=== PATIENT | female | born 1945 | race Hispanic/Latino ===

== ENCOUNTER 2018-03-26 11:21 | Inpatient (IN) | payer MEDICARE ==
[2018-03-26 12:35] LABS: BASO % 0.6 % (0.0-2.0); EOS % 0.2 % (0.0-4.0); HEMOGLOBIN 11.9 g/dL (11.0-16.0); LYMPH # 0.5 K/uL (1.0-4.3); LYMPH % 6.4 % (20.0-40.0); MEAN CELL VOLUME 84.3 fL (81.0-99.0); MEAN CORPUSCULAR HEMOGLOBIN 29.3 pg (27.0-31.0); MEAN CORPUSCULAR HGB CONC 34.7 g/dL (33.0-37.0); MEAN PLATELET VOLUME 8.4 fL (7.2-11.7); MONO # 0.6 K/uL (0.0-0.8); MONO % 7.7 % (0.0-10.0); NEUT # 6.4 K/uL (1.8-7.0); NEUT % 85.1 % (50.0-75.0); PLATELET COUNT 293 K/uL (130-400); RBC 4.07 Mil/uL (3.80-5.20); WHITE BLOOD COUNT 7.5 K/uL (4.8-10.8)
[2018-03-26 12:41] LABS: SQUAMOUS EPITHIAL 22 /hpf (0-5); URINE BACTERIA RARE (<OCC); URINE BILIRUBIN NEGATIVE (NEGATIVE); URINE BLOOD 1+ (NEGATIVE); URINE CLARITY Clear (Clear); URINE COLOR Yellow (YELLOW); URINE GLUCOSE (UA) NORMAL (Normal); URINE LEUKOCYTE ESTERASE NEG Leu/uL (Negative); URINE PROTEIN 1+ mg/dL (NEGATIVE); URINE UROBILINOGEN NORMAL mg/dL (0.2-1.0)
[2018-03-26 12:47] LABS: ALB/GLOB RATIO 1.3 (1.0-2.1); ALBUMIN 3.8 g/dL (3.5-5.0); ALT/SGPT 31 U/L (9-52); AST/SGOT 26 U/L (14-36); BLOOD UREA NITROGEN 10 mg/dL (7-17); CALCIUM 8.8 mg/dl (8.6-10.4); GFR NON-AFRICAN AMERICAN > 60
[2018-03-26 12:55] LABS: BANDS 2 % (0-2); EOSINOPHIL 1 % (0-4); LYMPHOCYTE 8 % (20-40); MONOCYTE 9 % (0-10); MYELOCYTE 1 % (0-0); NEUTROPHIL 78 % (50-75); REACTIVE LYMPHOCYTES 1 % (0-0); TOTAL CELLS COUNTED 100
[2018-03-26 12:56] LABS: OVALOCYTES SLIGHT; PLATELET ESTIMATE NORMAL (NORMAL)
[2018-03-26 12:59] LABS: B-TYPE NATRIURETIC PEPTIDE 146 pg/mL (0-900)
--- NOTE | 2018-03-26 13:14 | C.PDOC ---
History Of Present Illness 72 y/o female presents to ED with c/o bilateral hip and leg pain for 2-3 days associated with worsening leg edema and redness. Patient states 2 weeks ago, she slid off of a chair onto the floor and landed onto her abdomen. Patient denies head injury, LOC, chest pain, SOB, fever, or any other complaints. Time Seen by Provider: 03/26/18 11:23 Chief Complaint (Nursing): Back Pain History Per: Patient History/Exam Limitations: no limitations Onset/Duration Of Symptoms: Days Current Symptoms Are (Timing): Still Present Quality Of Discomfort: "Pain" Past Medical History Reviewed: Historical Data, Nursing Documentation, Vital Signs Vital Signs: Last Vital Signs Temp 97.7 F 04/01/18 16:00 Pulse 93 H 04/01/18 16:00 Resp 20 04/01/18 16:00 BP 123/69 04/01/18 16:00 Pulse Ox 95 04/01/18 16:00 - Medical History PMH: No Chronic Diseases Surgical History: No Surg Hx Family History: States: No Known Family Hx - Social History Hx Alcohol Use: No Hx Substance Use: No Review Of Systems Constitutional: Negative for: Fever, Chills Cardiovascular: Negative for: Chest Pain, Palpitations Respiratory: Negative for: Cough, Shortness of Breath Gastrointestinal: Negative for: Nausea, Vomiting, Abdominal Pain, Diarrhea Musculoskeletal: Positive for: Leg Pain, Other (Hip pain). Negative for: Arm Pain, Back Pain Neurological: Negative for: Weakness, Numbness Physical Exam - Physical Exam Appears: Well, Non-toxic, No Acute Distress Skin: Warm, Dry, No Rash, Other (bilateral legs and feet erythema ) Head: Normacephalic Eye(s): bilateral: Normal Inspection Oral Mucosa: Moist Neck: Supple Cardiovascular: Rhythm Regular Respiratory: Normal Breath Sounds, No Rales, No Rhonchi, No Wheezing Gastrointestinal/Abdominal: Normal Exam, Bowel Sounds, Soft, No Tenderness Extremity: Tenderness (mild bilateral hip TTP without deformity or swelling ), Pedal Edema (+2 bilateral lower legs), Capillary Refill (<2 seconds all digits ) , No Deformity, No Swelling Extremity: Bilateral: Normal ROM Pulses: Left Dorsalis Pedis: Normal, Right Dorsalis Pedis: Normal Neurological/Psych: Oriented x3, Normal Motor, Normal Sensation Gait: Unable To Assess (patient unable to ambulate) ED Course And Treatment - Laboratory Results Result Diagrams: 04/01/18 13:48 04/01/18 13:48 O2 Sat by Pulse Oximetry: 95 (RA) Pulse Ox Interpretation: Normal - CT Scan/US CT ABD/PELVIS Other Rad Studies (CT/US): Read By Radiologist, Radiology Report Reviewed CT/US Interpretation: Accession No. : [id number]. Patient Name / ID : AGUILAR SEARS / [id number]. Exam Date : 03/26/2018 14:02:27 ( Approved ). Study Comment : Sex / Age : F / [id number]. Creator : Anayeli Kwan. Dictator : Noemi Jvaed MD. Retail Sales Representative : Facilities Flight Check Pilot : Noemi Javed MD. Approver2 : Report Date : 03/26/2018 14:24:30. My Comment : . PROCEDURE: CT Abdomen and Pelvis without Oral or IV contrast. HISTORY: PELVIC AND HIP PAIN AFTER FALL. COMPARISON: None. TECHNIQUE: Contiguous axial images of the abdomen and pelvis. No oral or IV contrast administered. Coronal and Sagittal reformats generated and reviewed. Radiation dose: Total exam DLP = 1073.60 mGy-cm. This CT exam was performed using one or more of the following dose reduction techniques: Automated exposure control, adjustment of the mA and/ or kV according to patient size, and/or use of iterative reconstruction technique. FINDINGS: There is limited evaluation of the solid organs without the administration of IV contrast. LOWER THORAX: No visible consolidation, pleural effusion, or pneumothorax. Moderate hiatal hernia/distal esophageal wall thickening. LIVER: Unremarkable unenhanced appearance. . GALLBLADDER AND BILE DUCTS: Unremarkable unenhanced appearance. PANCREAS: Pancreatic atrophy. SPLEEN: Unremarkable unenhanced appearance. ADRENALS: Left adrenal gland mass measuring approximately 5.1 x 2.3 cm, -4 HU consistent with adenoma. The right adrenal gland appears unremarkable. KIDNEYS AND URETERS: No hydronephrosis or obstructing renal calculus. BLADDER: Distended urinary bladder appears otherwise grossly unremarkable. REPRODUCTIVE: Uterus is present. APPENDIX: No secondary signs of acute appendicitis. BOWEL: The stomach is nondistended. Lack of oral contrast limits evaluation for bowel pathology. The bowel loops appear within normal limits of caliber without evidence of intestinal obstruction. PERITONEUM: No significant free fluid. No definite free air. LYMPH NODES: No bulky lymphadenopathy identified. VASCULATURE: Atherosclerotic calcifications. No aortic aneurysm. BONES: Scoliosis. Osseous demineralization. Degenerative changes. No acute displaced fracture identified. If high clinical index of suspicion for non displaced fractures, suggest MRI due to limitations of CT secondary to osseous demineralization. OTHER FINDINGS: Small fat containing ventral hernia. IMPRESSION: Left adrenal gland mass measuring approximately 5.1 x 2.3 cm appears consistent with an adenoma. Pancreatic atrophy. Moderate hiatal hernia / distal esophageal wall thickening. Distended urinary bladder. Additional findings as above. Progress Note: Blood work, UA, Hip/pelvis xray ordered and reviewed. Patient given PO tylenol. Reevaluation Time: 13:25 Reassessment Condition: Unchanged (Patient c/o persistent hip/pelvic pain - will get CT scan abd/pelvis to futher evaluate.) - Physician Consult Information Physician Contacted: Nel Mcguire Outcome Of Conversation: Discussed patient wit Dr. Mcguire, he agrees with admission for gait dysfunction/inability to ambulate, hypokalemia, generalized weakness. Disposition - Disposition Disposition: HOSPITALIZED Disposition Time: 14:59 Condition: STABLE - Clinical Impression Clinical Impression: Gait disturbance, Hypokalemia, Generalized weakness - Scribe Statement The provider has reviewed the documentation as recorded by the Torrie Roberts All medical record entries made by the Torrie were at my direction and personally dictated by me. I have reviewed the chart and agree that the record accurately reflects my personal performance of the history, physical exam, medical decision making, and the department course for this patient. I have also personally directed, reviewed, and agree with the discharge instructions and disposition. Decision To Admit - Pt Status Changed To: Hospital Disposition Of: Inpatient - Admit Certification Admit to Inpatient:: After my assessment, the patient will require hospitalization for at least two midnights. This is because of the severity of symptoms shown, intensity of services needed, and/or the medical risk in this patient being treated as an outpatient. - InPatient: Physician Admission Certification:: see notes - . Bed Request Type: Regular Admitting Physician: Nel Mcguire Patient Diagnosis: Gait disturbance, Hypokalemia, Generalized weakness
[2018-03-26] MEDS ORDERED: Potassium Chloride 20 mEq ER Tab PO STA ×2 (13:18→18:54)
[2018-03-26] MEDS ORDERED: Potassium Chloride 20 mEq ER Tab PO ONE (13:36)
--- NOTE | 2018-03-26 14:43 | CT ---
PROCEDURE: CT Abdomen and Pelvis without Oral or IV contrast. HISTORY: PELVIC AND HIP PAIN AFTER FALL COMPARISON: None TECHNIQUE: Contiguous axial images of the abdomen and pelvis. No oral or IV contrast administered. Coronal and Sagittal reformats generated and reviewed. Radiation dose: Total exam DLP = 1073.60 mGy-cm. This CT exam was performed using one or more of the following dose reduction techniques: Automated exposure control, adjustment of the mA and/or kV according to patient size, and/or use of iterative reconstruction technique. FINDINGS: There is limited evaluation of the solid organs without the administration of IV contrast. LOWER THORAX: No visible consolidation, pleural effusion, or pneumothorax. Moderate hiatal hernia/distal esophageal wall thickening. LIVER: Unremarkable unenhanced appearance. . GALLBLADDER AND BILE DUCTS: Unremarkable unenhanced appearance. PANCREAS: Pancreatic atrophy. SPLEEN: Unremarkable unenhanced appearance. ADRENALS: Left adrenal gland mass measuring approximately 5.1 x 2.3 cm, -4 HU consistent with adenoma. The right adrenal gland appears unremarkable. KIDNEYS AND URETERS: No hydronephrosis or obstructing renal calculus. BLADDER: Distended urinary bladder appears otherwise grossly unremarkable. REPRODUCTIVE: Uterus is present. APPENDIX: No secondary signs of acute appendicitis. BOWEL: The stomach is nondistended. Lack of oral contrast limits evaluation for bowel pathology. The bowel loops appear within normal limits of caliber without evidence of intestinal obstruction. PERITONEUM: No significant free fluid. No definite free air. LYMPH NODES: No bulky lymphadenopathy identified. VASCULATURE: Atherosclerotic calcifications. No aortic aneurysm. BONES: Scoliosis. Osseous demineralization. Degenerative changes. No acute displaced fracture identified. If high clinical index of suspicion for non displaced fractures, suggest MRI due to limitations of CT secondary to osseous demineralization. OTHER FINDINGS: Small fat containing ventral hernia. IMPRESSION: Left adrenal gland mass measuring approximately 5.1 x 2.3 cm appears consistent with an adenoma. Pancreatic atrophy. Moderate hiatal hernia/ distal esophageal wall thickening. Distended urinary bladder. Additional findings as above.
--- NOTE | 2018-03-26 15:16 | RAD ---
Date of service: 03/26/2018 PROCEDURE: HISTORY: b/l hip simpson after fall COMPARISON: A CT abdomen and pelvis without contrast -the study performed after this exam is noted TECHNIQUE: Frontal and attempted bilateral frog-leg views were obtained. FINDINGS: The exam is limited regarding background osteopenia, large body habitus and the little if any change in projection from the frontal pelvic view to the intended bilateral frog-leg views of each proximal femur. Each proximal femur appears to be anteverted for impeding optimal evaluation for fractures. Nevertheless review of the subsequent same-day CT study does not display or suggest any discrete fracture or distal involving either hip. IMPRESSION: Limited exam for reasons stated above. Generalized osteopenia. No suspect hip fracture - when considering the now available subsequent CT study as well.
--- NOTE | 2018-03-26 22:55 | CP.PCM.CON ---
History of Present Illness - History of Present Illness History of Present Illness: General surgery consult note for Dr. Rusty Ham, PGY-2 Pt S & E at bedside [id number] 72F w/no reports PMH consulted for incidentally found left adrenal mass. 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 Reports bilateral flank pain that radiates down her legs, L >R, bilateral foot pain, B/L LE swelling (improved over last 2 weeks). Denies palpitations, chest pain, SOB, episodes of diaphoresis, changes in bowel or bladder habits, changes in vision, headache, N & V, F & C. CT ab w/findings of Left adrenal gland mass measuring approximately 5.1 x 2.3 cm appears consistent with an adenoma. Afebrile, no leukocytosis. PMH: Denies PSH: Denies All: NKDA SH: Denies tobacco, ETOH or illicit drug use PMD: Denies FH: Non contributory Review of Systems - Review of Systems Systems not reviewed;Unavailable: Language Barrier - Constitutional Constitutional: absent: Chills, Fever, Weakness - EENT Eyes: absent: Change in Vision Ears: absent: Dizziness Nose/Mouth/Throat: absent: Sore Throat - Cardiovascular Cardiovascular: Leg Edema, Pedal Edema. absent: Chest Pain, Lightheadedness, Palpitations - Respiratory Respiratory: absent: Cough - Gastrointestinal Gastrointestinal: absent: Abdominal Pain, Nausea, Vomiting - Genitourinary Genitourinary: absent: Change in Urinary Stream - Musculoskeletal Musculoskeletal: absent: Back Pain, Numbness, Tingling - Integumentary Integumentary: Rash (in intertriginous areas) - Psychiatric Psychiatric: absent: Change in Appetite - Endocrine Endocrine: absent: Fatigue Past Patient History - Past Medical History & Family History Past Medical History?: Yes - Past Social History Smoking Status: Never Smoked - PULMONARY Hx Bronchitis: Yes (periodically) Other/Comment: sinus (periodically) - MUSCULOSKELETAL/RHEUMATOLOGICAL Hx Falls: Yes - PSYCHIATRIC Hx Substance Use: No - SURGICAL HISTORY Hx Surgeries: No - ANESTHESIA Hx Anesthesia: No Meds Allergies/Adverse Reactions: Allergies Allergy/AdvReac Type Severity Reaction Status Date / Time No Known Allergies Allergy Verified 03/26/18 12:16 - Medications Medications: Current Medications Acetaminophen (Tylenol 325mg Tab) 650 mg PO Q6 PRN PRN Reason: Pain, moderate (4-7) Enoxaparin Sodium (Lovenox) 40 mg SC DAILY KARI Pantoprazole Sodium (Protonix Ec Tab) 40 mg PO DAILY KARI Physical Exam - Constitutional Appears: Non-toxic, No Acute Distress - Head Exam Head Exam: ATRAUMATIC, NORMAL INSPECTION, NORMOCEPHALIC - Eye Exam Eye Exam: EOMI, Normal appearance - ENT Exam ENT Exam: Mucous Membranes Moist, Normal Exam - Neck Exam Neck exam: Positive for: Full Rom, Normal Inspection - Respiratory Exam Respiratory Exam: Clear to Auscultation Bilateral, NORMAL BREATHING PATTERN. absent: Rales, Rhonchi, Wheezes, Respiratory Distress - Cardiovascular Exam Cardiovascular Exam: REGULAR RHYTHM, +S1, +S2 - GI/Abdominal Exam GI & Abdominal Exam: Soft. absent: Distended (obese), Tenderness - Extremities Exam Extremities exam: Positive for: pedal edema (B/L). Negative for: normal inspection - Back Exam Back exam: NORMAL INSPECTION. absent: paraspinal tenderness, rash noted, tenderness - Neurological Exam Neurological exam: Alert, CN II-XII Intact, Oriented x3 - Psychiatric Exam Psychiatric exam: Normal Affect, Normal Mood - Skin Skin Exam: Rash (red, moist rash under breasts, under pannus and in between legs ), Warm Results - Vital Signs Recent Vital Signs: Last Vital Signs Temp 98.4 F 03/26/18 17:12 Pulse 91 H 03/26/18 17:12 Resp 20 03/26/18 17:12 BP 169/78 H 03/26/18 17:12 Pulse Ox 93 L 03/26/18 17:12 - Labs Result Diagrams: 03/26/18 12:26 03/26/18 12:26 Labs: Laboratory Results - last 24 hr 03/26/18 03/26/18 03/26/18 12:26 12:26 12:26 WBC 7.5 RBC 4.07 Hgb 11.9 Hct 34.3 MCV 84.3 MCH 29.3 MCHC 34.7 RDW 13.0 Plt Count 293 MPV 8.4 Neut % (Auto) 85.1 H Lymph % (Auto) 6.4 L [place] % (Auto) 7.7 Eos % (Auto) 0.2 Baso % (Auto) 0.6 Neut # (Auto) 6.4 Lymph # (Auto) 0.5 L [place] # (Auto) 0.6 Eos # (Auto) 0.0 Baso # (Auto) 0.0 Neutrophils % (Manual) 78 H Band Neutrophils % 2 Lymphocytes % (Manual) 8 L Reactive Lymphs % 1 H Monocytes % (Manual) 9 Eosinophils % (Manual) 1 Myelocytes % 1 H Platelet Estimate Normal Ovalocytes Slight Sodium 136 Potassium 3.1 L Chloride 98 Carbon Dioxide 30 Anion Gap 11 BUN 10 Creatinine 0.5 L Est GFR ( Amer) > 60 Est GFR (Non-Af Amer) > 60 Random Glucose 117 H Calcium 8.8 Total Bilirubin 0.6 AST 26 ALT 31 Alkaline Phosphatase 86 Total Creatine Kinase 141 H CK-MB (Mass) 1.40 Troponin I < 0.0120 NT-Pro-B Natriuret Pep 146 Total Protein 6.7 Albumin 3.8 Globulin 2.9 Albumin/Globulin Ratio 1.3 Urine Color Yellow Urine Clarity Clear Urine pH 6.0 Ur Specific [place] 1.012 Urine Protein 1+ H Urine Glucose (UA) Normal Urine Ketones 1+ H Urine Blood 1+ H Urine Nitrate Negative Urine Bilirubin Negative Urine Urobilinogen Normal Ur Leukocyte Esterase Neg Urine WBC (Auto) 4 Urine RBC (Auto) 9 H Ur Squamous Epith Cells 22 H Urine Bacteria Rare Assessment & Plan - Assessment and Plan (Free Text) Assessment: 72F w/incidental adrenal mass Plan: Recommendations: metanephrine urinary analysis 24H urinary cortisol level Am plasma aldosterone concentration to plasma renin activity level Further recommendations pending lab findings DW Dr. Michael Ham, PGY-2 - Date & Time Date: 03/26/18 Time: 22:58
[2018-03-26 23:56] LABS: FREE T4 1.44 ng/dL (0.78-2.19)
[2018-03-27 00:45] LABS: FOLATE > 20.0 ng/mL
--- NOTE | 2018-03-27 06:32 | CON ---
DATE: 03/26/2018 ENDOCRINOLOGY CONSULTATION LOCATION: Room 365. HISTORY OF PRESENT ILLNESS: This is a 72-year-old female with no apparent medical history, presenting here with bilateral flank pain and associated radiculopathy and also lower extremity edema and supervening restricted ambulation with disequilibrium, worse over the last two weeks or so prior to admission following a recent fall. She is being referred now for endocrine evaluation because of an incidental CAT scan finding of a left adrenal gland tumor, measuring 5.1 x 2.3 cm consisting of adenoma as noted. PAST MEDICAL HISTORY: Essentially unremarkable. No intake of any medications at this time. FAMILY HISTORY: Positive for hypertension and heart disease. SOCIAL HISTORY: The patient has supportive family. No known substance use. REVIEW OF SYSTEMS: As mentioned above, admits to generalized body weakness with episodic bouts of dizziness and lightheadedness, worse in the last two to three days prior to admission with a recent fall as noted. She denies any prior syncopal or near syncopal episodes. No recent visual changes or headaches as noted. No chest pain, palpitations, or PNDs. Her oral intake has been variable with occasional dyspepsia and admits habitual constipation. Also admits to bilateral flank pain with pain radiating to both lower extremities and also supervening lower extremity edema, worse in the last few weeks prior to admission. PHYSICAL EXAMINATION: GENERAL: This is an obese female, in no apparent distress. VITAL SIGNS: With a blood pressure of 150/90, pulse of 70 beats per minute and regular, temperature 98, respirations 20. Height is 5 feet. Weight is 220 pounds. HEENT: Head: Normocephalic. Eyes: Anicteric with pink conjunctivae. Funduscopy not possible at this time. Ears, nose and throat, otherwise normal. NECK: Supple. Thyroid gland is normal size. No carotid bruits or any cervical adenopathy. CARDIOPULMONARY: Some adynamic precordium. S1 and S2 are rapid and regular. LUNGS: Clear to auscultation. ABDOMEN: Obese, soft with positive bowel sounds. EXTREMITIES: There is +2 bipedal edema. Pulses are +2 bilaterally. LABORATORY DATA: Chemistries showed a BUN of 10, sodium 136, potassium 3.1, chloride 98, CO2 of 30, glucose 117, and creatinine 0.5. Albumin is 3.8. Troponin less than 0.01. ASSESSMENT: This is a 72-year-old female with an incidental finding of adrenal incidentaloma of moderately enlarged dimensions in the left adrenal gland and the possibility always of a functioning versus nonfunctioning adrenal tumor has to be worked up at this point in time. With the large dimensions of the gland measuring 5.1 x 2.3 cm, we have to exclude an underlying adrenal carcinoma. The diagnostic possibilities are always common adrenal adenoma, but because of the large dimensions of the gland, we have to exclude an adrenal carcinoma as mentioned and also whether we are dealing with a functioning adenoma i.e, aldosterone-secreting adenoma especially with underlying hypokalemia, and we have to exclude the so-called Conn's syndrome. Moreover, a remote, but also possibility of a pheochromocytoma has to be excluded at this time, actually especially with underlying uncontrolled hypertension noted only on admission. Moreover because of the underlying obesity, we have to exclude a cortisol-secreting adenoma, which could cause [place] syndrome with underlying morbid obesity. PLAN OF MANAGEMENT: We will obtain a comprehensive hormonal profile and the results of course of this hormone will take close to two weeks reference lab, but anyhow, we will obtain a comprehensive hormonal profile as ordered. Plasma free metanephrine levels with plasma catecholamine levels will be obtained tomorrow morning and we also include a serum cortisol and ACTH level with a plasma renin and plasma aldosterone levels in combination with a plasma renin/aldosterone ratio as added to the hormonal assay as ordered. Serial chemistries will be obtained and will also consider a surgical evaluation for possible laparoscopic adrenalectomy following the completion of the hormonal profile as ordered. We will follow and advice accordingly. Barbara Vasquez MD
[2018-03-27 07:58] LABS: ALB/GLOB RATIO 1.1 (1.0-2.1); ALBUMIN 3.5 g/dL (3.5-5.0); ALT/SGPT 22 U/L (9-52); AST/SGOT 23 U/L (14-36); BLOOD UREA NITROGEN 12 mg/dL (7-17); CALCIUM 8.9 mg/dl (8.6-10.4); GFR NON-AFRICAN AMERICAN > 60
--- NOTE | 2018-03-27 08:44 | CON ---
DATE: 03/27/2018 NEUROLOGICAL INITIAL CONSULTATION ATTENDING PHYSICIAN: Mariah Mcguire MD LOCATION: The patient is seen in room #365, bed B. REASON FOR RENAL CONSULTATION: Ataxia. TIME OF EVALUATION: 7:10 a.m. CHIEF COMPLAINT: The patient was brought into [facility] with a history of unsteady gait. From neurological point of view, I was called into evaluate her for further management. HISTORY OF PRESENT ILLNESS: Sabine Gomez is a 72-year-old right-handed moderately obese female. She admits that she has been falling frequently in the past, prior fall to this admission was a year ago. Year after, 2 weeks ago, she slid just from the kitchen chair, landed on her back. No obvious trauma from the fall. No weakness from the fall. However, she noticed for the last 5 days her gait got disturbed in the sense she has to use the walker which was used by her father. No history of bowel or bladder incontinence. History of lower back pain radiating down to her left leg. No neck pain. No headache. PAST MEDICAL HISTORY: No chronic diseases. PAST SURGICAL HISTORY: No surgical history. FAMILY HISTORY: Unremarkable. PERSONAL HISTORY: Denies smoking or alcohol use. ALLERGIES: NO KNOWN ALLERGIES. REVIEW OF SYSTEMS: Twelve-point system being reviewed. From neuro, losing balance. PHYSICAL EXAMINATION: VITAL SIGNS: Blood pressure 150/70, respiratory rate 16, temperature afebrile, pulse rate 92. NECK: Supple. No carotid bruits. HEART: Heart sounds irregularly irregular. Ejection systolic murmur heard. EXTREMITIES: Right leg externally rotated with 2+ pitting edema on her both legs. NEUROLOGIC: Mental status examination: She is awake, alert, and oriented to person, place and time. No retrograde amnesia. No anterograde amnesia. No sign of depression. No sign of suicidal ideation. Cranial nerve examination: Visual field intact. Pupils reactive. Extraocular normal. No nystagmus. No facial sensory deficit. Significant facial asymmetry manifesting with flattening of the right nasolabial fold. Hearing seems to be intact. Tongue is midline. Good gag. Motor examination: Outstretched hand with eyes closed, no drift noted. Symmetric strength in both upper extremities. Lower extremities as stated, right leg is externally rotated. On lifting her left leg, she feels the pain in her back. However, she could able to lift both lower extremities against the gravity for about 5 seconds. Deep tendon reflexes: Biceps, brachialis, triceps 1+ on the right side. Left side is trace. Right knee 1+, left knee absent, both ankles are absent. Plantars are upgoing on her left side, right side was equivocal response. Sensory examination: No cortical sensory loss. Position sense is intact. Mildly distal sensory motor neuropathy noted. Coordination: [id number] test is intact. Gait is deferred at this time. CONCLUSION: As per neurological examination, Ms. Sabine Gomez has been presenting with left subcortical dysfunction, it could be from internal capsule to lower brainstem. This probably is an ischemic process versus a space-occupying lesion. The patient's Babinski sign on her left side is suggestive of right subcortical dysfunction, which is probably old. 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 WORKUP: X-ray of the pelvis and hip, no obvious fractures. Abdominal CAT scan showed a renal mass. From the x-ray, significant osteopenia. Blood workup: WBC 7.5, hemoglobin 11.9, hematocrit 34.3, platelet 293. ESR 23. Sodium 136, potassium 3.1, chloride 98, bicarbonate 30, GFR more than 60, glucose 117, B12 of 173. TSH 2.62. Urinalysis shows 9 rbc's with epithelial cells and 1+ ketone and 1+ hematuria and proteinuria. RECOMMENDATIONS: 1. MRI of the brain to rule out any ischemic process that could explain her bilateral cerebral dysfunction. 2. If MRI of the brain is negative, the patient should have a lumbosacral MRI to rule out any herniated disc process. 3. The patient should be on a stroke prophylaxis following MRI that should be placed. 4. Physical therapy, fall precaution should be followed. The patient today showed incidental left adrenal mass that has to be followed by seam stayer as well. Leonid Palacios MD
[2018-03-27] MEDS ORDERED: Oxycodone/Acetaminophen 5/325 mg Tab PO PRN (10:42)
--- NOTE | 2018-03-27 10:46 | CP.PCM.PN ---
Subjective - Date & Time of Evaluation Date of Evaluation: 03/27/18 Time of Evaluation: 10:43 - Subjective Subjective: Surgery Pt seen and examined. c/o back pain. Denies abd pain, MORENO, vision changes, nausea , vomiting, diarrhea. Seen by endocrine. Objective - Vital Signs/Intake and Output Vital Signs (last 24 hours): Temp Pulse Resp BP Pulse Ox 98 F 98 H 20 140/61 95 03/27/18 08:08 03/27/18 08:08 03/27/18 08:08 03/27/18 08:08 03/27/18 08:08 Intake and Output: 03/27/18 03/27/18 06:59 18:59 Intake Total 520 Balance 520 - Medications Medications: Current Medications Acetaminophen (Tylenol 325mg Tab) 650 mg PO Q6 PRN PRN Reason: Pain, moderate (4-7) Enoxaparin Sodium (Lovenox) 40 mg SC DAILY [facility] Oxycodone/Acetaminophen (Percocet 5/325 Mg Tab) 2 tab PO Q4H PRN PRN Reason: Pain, moderate (4-7) Stop: 03/30/18 10:43 Pantoprazole Sodium (Protonix Ec Tab) 40 mg PO DAILY [facility] - Labs Labs: 03/26/18 12:26 03/27/18 07:06 - Constitutional Appears: No Acute Distress - Head Exam Head Exam: ATRAUMATIC, NORMAL INSPECTION, NORMOCEPHALIC - Eye Exam Eye Exam: EOMI, Normal appearance, PERRL Pupil Exam: NORMAL ACCOMODATION, PERRL - ENT Exam ENT Exam: Mucous Membranes Moist, Normal Exam - Neck Exam Neck Exam: Full ROM, Normal Inspection - Respiratory Exam Respiratory Exam: NORMAL BREATHING PATTERN - Cardiovascular Exam Cardiovascular Exam: REGULAR RHYTHM, +S1, +S2. absent: Murmur - GI/Abdominal Exam GI & Abdominal Exam: Soft. absent: Distended, Tenderness Additional comments: Obese - Extremities Exam Extremities Exam: Full ROM, Normal Capillary Refill, Normal Inspection. absent : Joint Swelling, Pedal Edema - Back Exam Back Exam: NORMAL INSPECTION - Neurological Exam Neurological Exam: Alert, Awake, CN II-XII Intact, Normal Gait, Oriented x3 - Psychiatric Exam Psychiatric exam: Normal Affect, Normal Mood - Skin Skin Exam: Dry, Intact, Normal Color, Warm Assessment and Plan - Assessment and Plan (Free Text) Assessment: 72F w/incidental L adrenal mass Cortisol 35 Plan: F/u endocrinology F/u Endocrine work up metanephrine urinary analysis Plasma metanephrine, plasma catecholamine Serum cortisol, ACTH level Am plasma aldosterone concentration to plasma renin activity level Further recommendations pending lab findings DW Dr. Rodriguez
[2018-03-27] MEDS: Enoxaparin 40 mg Syringe SC SCH (10:54)
[2018-03-27] MEDS: Pantoprazole 40 mg EC Tab PO SCH (10:54)
--- NOTE | 2018-03-27 14:57 | MRI ---
Date of service: 03/27/2018 PROCEDURE: MRI BRAIN WITHOUT CONTRAST HISTORY: ENGINEERING SYSTEMS ANALYST STROKE PROCESS COMPARISON: None available. TECHNIQUE: Multiplanar, multisequence MR images of the brain were obtained without intravenous contrast enhancement. FINDINGS: HEMORRHAGE: None DWI: No evidence of an acute or early subacute infarction. BRAIN PARENCHYMA: No mass effect or edema. Atrophy and chronic microvascular ischemic changes. VENTRICLES: Unremarkable. No hydrocephalus. CRANIUM: Unremarkable. ORBITS: Grossly unremarkable. PARANASAL SINUSES/MASTOIDS: Clear VASCULAR SYSTEM: Skull base flow voids intact. OTHER FINDINGS: None. IMPRESSION: Atrophy and chronic microvascular ischemic changes.
--- NOTE | 2018-03-27 15:39 | CP.PCM.HP ---
Past Patient History - Past Medical History & Family History Past Medical History?: Yes - Past Social History Smoking Status: Never Smoked - PULMONARY Hx Bronchitis: Yes (periodically) Other/Comment: sinus (periodically) - MUSCULOSKELETAL/RHEUMATOLOGICAL Hx Arthritis: Yes (KNEE, BACK) - PSYCHIATRIC Hx Substance Use: No - SURGICAL HISTORY Hx Surgeries: No - ANESTHESIA Hx Anesthesia: No Meds Allergies/Adverse Reactions: Allergies Allergy/AdvReac Type Severity Reaction Status Date / Time No Known Allergies Allergy Verified 03/26/18 12:16 Physical Exam - Constitutional Appears: Well - Head Exam Head Exam: ATRAUMATIC, NORMAL INSPECTION, NORMOCEPHALIC - Eye Exam Eye Exam: EOMI, Normal appearance, PERRL Pupil Exam: NORMAL ACCOMODATION, PERRL - ENT Exam ENT Exam: Mucous Membranes Moist, Normal Exam - Neck Exam Neck exam: Positive for: Normal Inspection - Respiratory Exam Respiratory Exam: Decreased Breath Sounds - Cardiovascular Exam Cardiovascular Exam: REGULAR RHYTHM, +S1, +S2 - GI/Abdominal Exam GI & Abdominal Exam: Diminished Bowel Sounds, Soft - Rectal Exam Rectal Exam: Deferred Results - Vital Signs Recent Vital Signs: Last Vital Signs Temp 98 F 03/27/18 08:08 Pulse 98 H 03/27/18 08:08 Resp 20 03/27/18 08:08 BP 140/61 03/27/18 08:08 Pulse Ox 95 03/27/18 08:08 - Labs Result Diagrams: 03/26/18 12:26 03/27/18 07:06 Labs: Laboratory Results - last 24 hr 03/26/18 03/26/18 03/26/18 23:14 23:14 23:14 ESR 23 H Sodium Potassium Chloride Carbon Dioxide Anion Gap BUN Creatinine Est GFR ( Amer) Est GFR (Non-Af Amer) Random Glucose Calcium Magnesium Total Bilirubin AST ALT Alkaline Phosphatase C-Reactive Protein 71.10 H Total Protein Albumin Globulin Albumin/Globulin Ratio Vitamin B12 973 H Folate > 20.0 Free T4 1.44 TSH 3rd Generation 2.62 Cortisol AM Sample 03/27/18 03/27/18 07:06 07:06 ESR Sodium 141 Potassium 3.8 Chloride 105 Carbon Dioxide 30 Anion Gap 11 BUN 12 Creatinine 0.6 L Est GFR ( Amer) > 60 Est GFR (Non-Af Amer) > 60 Random Glucose 88 Calcium 8.9 Magnesium 2.1 Total Bilirubin 0.6 AST 23 ALT 22 Alkaline Phosphatase 79 C-Reactive Protein Total Protein 6.6 Albumin 3.5 Globulin 3.1 Albumin/Globulin Ratio 1.1 Vitamin B12 Folate Free T4 TSH 3rd Generation 1.86 Cortisol AM Sample 34.9 H
--- NOTE | 2018-03-27 21:24 | PN ---
DATE: 03/27/2018 ENDO FOLLOWUP NOTE LOCATION: In room 365. SUBJECTIVE: This is a 72-year-old female presenting here with bilateral flank pain with lower extremity edema and supervening generalized body weakness and ataxia, and is now undergoing neurological workup at this time, and is also being followed closely for metabolic management. The routine CAT scan of the abdomen and pelvis showed the presence of a left adrenal mass measuring 5.1 x 2.3 cm at this time. She is undergoing a full hormonal profile to exclude whether we are dealing with a functioning versus a nonfunctioning adrenal adenoma. LABORATORY DATA: Her chemistries today showed a BUN of 12, sodium 141, potassium 3.8, chloride 105, CO2 of 30, glucose 88, and creatinine 0.6. Her thyroid studies showed a T4 of 1.44 with a TSH of 1.86. Her cortisol level is 34.9, which is slightly elevated as noted. She is undergoing hormonal workup to exclude the possibility either Hays syndrome versus Conn's syndrome with aldosterone secreting adenoma versus a pheochromocytoma, and hormonal assays have been drawn today and are pending as most of them are sent out to a reference lab as noted. We will obtain a 24-hour urinary free cortisol collection start tomorrow morning to accurately do a cortisol collection accordingly. We will follow. She also has an ongoing surgical evaluation because of the large dimensions of the adrenal adenoma measuring over 5 cm as noted, and we have to exclude the presence of an adrenal carcinoma with a very large dimensions of the tumor. We will follow and advise accordingly. Barbara Vasquez MD
--- NOTE | 2018-03-28 10:15 | CP.PCM.PN ---
Subjective - Date & Time of Evaluation Date of Evaluation: 03/28/18 Time of Evaluation: 10:13 - Subjective Subjective: Surgery Pt seen and examined. No acute events. c/o L back/flank pain. Denies abd pain, MORNEO, nausea, vision changes. undergoing 24 hr urine collection for cortisol level. Objective - Vital Signs/Intake and Output Vital Signs (last 24 hours): Temp Pulse Resp BP Pulse Ox 99.1 F 91 H 20 153/78 H 96 03/28/18 08:00 03/28/18 08:00 03/28/18 08:00 03/28/18 08:00 03/28/18 08:00 Intake and Output: 03/28/18 03/28/18 06:59 18:59 Intake Total 500 Output Total 3000 Balance -2500 - Medications Medications: Current Medications Acetaminophen (Tylenol 325mg Tab) 650 mg PO Q6 PRN PRN Reason: Pain, Mild (1-3) Enoxaparin Sodium (Lovenox) 40 mg SC DAILY [facility] Last Admin: 03/27/18 10:54 Dose: 40 mg Oxycodone/Acetaminophen (Percocet 5/325 Mg Tab) 2 tab PO Q4H PRN PRN Reason: Pain, moderate (4-7) Stop: 03/30/18 10:43 Pantoprazole Sodium (Protonix Ec Tab) 40 mg PO DAILY [facility] Last Admin: 03/27/18 10:54 Dose: 40 mg - Labs Labs: 03/26/18 12:26 03/27/18 07:06 - Constitutional Appears: No Acute Distress - Head Exam Head Exam: ATRAUMATIC, NORMAL INSPECTION, NORMOCEPHALIC - Eye Exam Eye Exam: EOMI, Normal appearance, PERRL Pupil Exam: NORMAL ACCOMODATION, PERRL - ENT Exam ENT Exam: Mucous Membranes Moist, Normal Exam - Neck Exam Neck Exam: Full ROM, Normal Inspection. absent: Lymphadenopathy - Respiratory Exam Respiratory Exam: NORMAL BREATHING PATTERN - Cardiovascular Exam Cardiovascular Exam: REGULAR RHYTHM, +S1, +S2. absent: Murmur - GI/Abdominal Exam GI & Abdominal Exam: Soft, Normal Bowel Sounds. absent: Distended, Tenderness - Extremities Exam Extremities Exam: Full ROM, Normal Inspection - Back Exam Back Exam: NORMAL INSPECTION Additional comments: L back TTP - Neurological Exam Neurological Exam: Alert, Awake, CN II-XII Intact, Normal Gait, Oriented x3 - Psychiatric Exam Psychiatric exam: Normal Affect, Normal Mood - Skin Skin Exam: Dry, Intact, Normal Color, Warm Assessment and Plan - Assessment and Plan (Free Text) Assessment: 72F w/incidental L adrenal mass Cortisol 35 Plan: F/u endocrinology F/u Endocrine work up metanephrine urinary analysis Plasma metanephrine, plasma catecholamine Serum ACTH level Am plasma aldosterone concentration to plasma renin activity level Further recommendations pending lab findings Will DW Dr. Rodriguez
[2018-03-28] MEDS: Enoxaparin 40 mg Syringe SC SCH (10:56)
[2018-03-28] MEDS: Pantoprazole 40 mg EC Tab PO SCH (10:56)
[2018-03-28] MEDS ORDERED: guaiFENesin 200 mg/10 ml Syrup UD PO STA (14:25)
--- NOTE | 2018-03-28 15:28 | CP.PCM.PN ---
Subjective - Date & Time of Evaluation Date of Evaluation: 03/28/18 Time of Evaluation: 08:00 - Subjective Subjective: clinically same Objective - Vital Signs/Intake and Output Vital Signs (last 24 hours): Temp Pulse Resp BP Pulse Ox 99.5 F 91 H 20 144/77 96 03/28/18 14:34 03/28/18 08:00 03/28/18 08:00 03/28/18 14:31 03/28/18 08:00 Intake and Output: 03/28/18 03/28/18 06:59 18:59 Intake Total 500 Output Total 3000 Balance -2500 - Medications Medications: Current Medications Acetaminophen (Tylenol 325mg Tab) 650 mg PO Q6 PRN PRN Reason: Pain, Mild (1-3) Last Admin: 03/28/18 14:34 Dose: 650 mg Enoxaparin Sodium (Lovenox) 40 mg SC DAILY [facility] Last Admin: 03/28/18 10:56 Dose: 40 mg Oxycodone/Acetaminophen (Percocet 5/325 Mg Tab) 2 tab PO Q4H PRN PRN Reason: Pain, moderate (4-7) Stop: 03/30/18 10:43 Pantoprazole Sodium (Protonix Ec Tab) 40 mg PO DAILY [facility] Last Admin: 03/28/18 10:56 Dose: 40 mg - Labs Labs: 03/26/18 12:26 03/27/18 07:06 - Constitutional Appears: Well - Head Exam Head Exam: ATRAUMATIC, NORMAL INSPECTION, NORMOCEPHALIC - Eye Exam Eye Exam: EOMI, Normal appearance, PERRL Pupil Exam: NORMAL ACCOMODATION, PERRL - ENT Exam ENT Exam: Mucous Membranes Moist, Normal Exam - Neck Exam Neck Exam: Full ROM, Normal Inspection. absent: Lymphadenopathy - Respiratory Exam Respiratory Exam: Decreased Breath Sounds - Cardiovascular Exam Cardiovascular Exam: REGULAR RHYTHM, +S1, +S2 - GI/Abdominal Exam GI & Abdominal Exam: Soft, Diminished Bowel Sounds - Rectal Exam Rectal Exam: Deferred
[2018-03-29] MEDS: Pantoprazole 40 mg EC Tab PO SCH (09:43)
[2018-03-29] MEDS: Enoxaparin 40 mg Syringe SC SCH (09:43)
--- NOTE | 2018-03-29 10:05 | CP.PCM.PN ---
Subjective - Date & Time of Evaluation Date of Evaluation: 03/29/18 Time of Evaluation: 07:00 - Subjective Subjective: Patient seen and examined. No acute events over night. Denies any abdominal pain. Tolerating diet. Objective - Vital Signs/Intake and Output Vital Signs (last 24 hours): Temp Pulse Resp BP Pulse Ox 99.4 F 81 20 147/76 94 L 03/29/18 00:09 03/29/18 00:09 03/29/18 00:09 03/29/18 00:09 03/29/18 00:09 Intake and Output: 03/29/18 03/29/18 06:59 18:59 Output Total 1800 Balance -1800 - Medications Medications: Current Medications Acetaminophen (Tylenol 325mg Tab) 650 mg PO Q6 PRN PRN Reason: Pain, Mild (1-3) Last Admin: 03/28/18 14:34 Dose: 650 mg Enoxaparin Sodium (Lovenox) 40 mg SC DAILY [facility] Last Admin: 03/29/18 09:43 Dose: 40 mg Oxycodone/Acetaminophen (Percocet 5/325 Mg Tab) 2 tab PO Q4H PRN PRN Reason: Pain, moderate (4-7) Stop: 03/30/18 10:43 Pantoprazole Sodium (Protonix Ec Tab) 40 mg PO DAILY [facility] Last Admin: 03/29/18 09:43 Dose: 40 mg - Labs Labs: 03/26/18 12:26 03/27/18 07:06 - Constitutional Appears: No Acute Distress - Head Exam Head Exam: NORMOCEPHALIC - Eye Exam Eye Exam: Normal appearance - ENT Exam ENT Exam: Mucous Membranes Moist - Respiratory Exam Respiratory Exam: NORMAL BREATHING PATTERN - Cardiovascular Exam Cardiovascular Exam: +S1, +S2 - GI/Abdominal Exam GI & Abdominal Exam: Soft. absent: Distended, Firm, Guarding, Rigid - Neurological Exam Neurological Exam: Alert, Awake, Oriented x3 - Psychiatric Exam Psychiatric exam: Normal Mood - Skin Skin Exam: Dry, Intact, Warm Assessment and Plan - Assessment and Plan (Free Text) Assessment: 72F with adrenal mass- possible functional adenoma Plan: -Awaiting further endocrine test results -elevated cortisol -Possibility of Surgical excision of mass not excluded at this time -Will speak with urology about possible surgical intervention -Further recommendations pending work up -Endocrinology recs appreciated -D/w Dr. Michael Corona PGY3
--- NOTE | 2018-03-29 13:59 | CP.PCM.PN ---
Subjective - Date & Time of Evaluation Date of Evaluation: 03/29/18 Time of Evaluation: 08:00 - Subjective Subjective: clinically same Objective - Vital Signs/Intake and Output Vital Signs (last 24 hours): Temp Pulse Resp BP Pulse Ox 98.0 F 92 H 20 149/71 95 03/29/18 08:00 03/29/18 08:00 03/29/18 08:00 03/29/18 08:00 03/29/18 08:00 Intake and Output: 03/29/18 03/29/18 06:59 18:59 Output Total 1800 Balance -1800 - Medications Medications: Current Medications Acetaminophen (Tylenol 325mg Tab) 650 mg PO Q6 PRN PRN Reason: Pain, Mild (1-3) Last Admin: 03/28/18 14:34 Dose: 650 mg Enoxaparin Sodium (Lovenox) 40 mg SC DAILY [facility] Last Admin: 03/29/18 09:43 Dose: 40 mg Oxycodone/Acetaminophen (Percocet 5/325 Mg Tab) 2 tab PO Q4H PRN PRN Reason: Pain, moderate (4-7) Stop: 03/30/18 10:43 Pantoprazole Sodium (Protonix Ec Tab) 40 mg PO DAILY [facility] Last Admin: 03/29/18 09:43 Dose: 40 mg - Labs Labs: 03/26/18 12:26 03/27/18 07:06 - Constitutional Appears: Well - Head Exam Head Exam: ATRAUMATIC, NORMAL INSPECTION, NORMOCEPHALIC - Eye Exam Eye Exam: EOMI, Normal appearance, PERRL Pupil Exam: NORMAL ACCOMODATION, PERRL - ENT Exam ENT Exam: Mucous Membranes Moist, Normal Exam - Neck Exam Neck Exam: Full ROM, Normal Inspection. absent: Lymphadenopathy - Respiratory Exam Respiratory Exam: Decreased Breath Sounds - Cardiovascular Exam Cardiovascular Exam: REGULAR RHYTHM, +S1, +S2 - GI/Abdominal Exam GI & Abdominal Exam: Soft, Diminished Bowel Sounds - Rectal Exam Rectal Exam: Deferred Assessment and Plan - Assessment and Plan (Free Text) Plan: Complains of left pain which is better patient is on incidental left adrenal mass for which patient following surgeons: Follow-up with endocrinology workup 24 hour urine workup Follow-up with the surgeon d/c planning PTOT may need subacute rehab patient agrees for it workup for the adrenal mass
[2018-03-29] MEDS ORDERED: Albuterol-Ipratrop 3 mg / 0.5 (3 ml) UD INH PRN (14:16)
--- NOTE | 2018-03-29 15:45 | PN ---
DATE: 03/29/2018 ENDO FOLLOWUP NOTE LOCATION: Room 365. SUBJECTIVE: This is a 72-year-old female with generalized body weakness and was found to have an incidental large left adrenal tumor and currently undergoing metabolic and hormonal workup at this time, and is being followed closely for metabolic management. Her latest chemistries today shows a BUN of 12, sodium 141, potassium 3.8, chloride 105, CO2 30, glucose 88, and creatinine 0.6. Her serum cortisol was reported as 34.9 mcg/dL. So at this time, we will check ongoing 24-hour urinary collection for free cortisol to exclude any underlying Palmira's adenoma. Moreover, the other hormonal profile levels are still pending, actually with central reference labs and would take a while for completion of this as mentioned. She will eventually need laparoscopic adrenalectomy to fully evaluate the nature of the adrenal adenoma, and also to exclude adrenal carcinoma with the very large dimensions of the gland, after we have done a workup as to whether we are dealing with the functioning versus nonfunctioning adrenal gland tumor as noted. We will obtain serial chemistries and supplement accordingly as needed. We will follow. Barbara Vasquez MD
[2018-03-29] MEDS: guaiFENesin 600 mg ER Tab PO SCH (17:20)
[2018-03-29] MEDS: Azithromycin 500mg/250ML NS 500 MG/250 ML BAG IVPB SCH (17:50)
[2018-03-29 23:56] VITALS: RESP 20
[2018-03-30 07:48] LABS: ALB/GLOB RATIO 1.1 (1.0-2.1); ALBUMIN 3.3 g/dL (3.5-5.0); ALT/SGPT 29 U/L (9-52); AST/SGOT 23 U/L (14-36); BLOOD UREA NITROGEN 10 mg/dL (7-17); CALCIUM 9.1 mg/dl (8.6-10.4); GFR NON-AFRICAN AMERICAN > 60
--- NOTE | 2018-03-30 08:06 | PN ---
DATE: 03/28/2018 ENDO FOLLOWUP NOTE LOCATION: In room 365. SUBJECTIVE: This is a 72-year-old female with recent admission for generalized body weakness and lower back pain radiating to the lower extremities with contaminant pedal edema and is now being followed closely for metabolic management. She also had an incidental finding of a left adrenal gland tumor and is undergoing metabolic and endocrine workup to determine whether we are dealing with the functioning versus or nonfunctioning adrenal adenoma. Her chemistries today showed a BUN of 12, sodium 141, potassium 3.8, chloride 105, CO2 of 30, glucose 88, creatinine 0.6. Her serum cortisol level is 34.9, which is elevated and her TSH is 2.62 as noted. The remaining hormonal profile, which were sent out are still pending completion at this time. She has ongoing 24-hour urinary collection for a urinary free cortisol to exclude any underlying presence of Palmira syndrome. We are also trying to exclude the possibility of a pheochromocytoma versus an aldosterone-secreting adenoma and the hormonal profiles are still pending at this time. We will also await the surgical evaluation on consult because of the quite large dimensions of the gland measuring over 5 cm as noted. We will obtain serial chemistries and supplement accordingly as needed. We will follow. Barbara Vasquez MD
--- NOTE | 2018-03-30 10:37 | CP.PCM.PN ---
Subjective - Date & Time of Evaluation Date of Evaluation: 03/30/18 Time of Evaluation: 06:45 Objective - Vital Signs/Intake and Output Vital Signs (last 24 hours): Temp Pulse Resp BP Pulse Ox 98.2 F 89 20 145/80 95 03/30/18 08:00 03/30/18 08:00 03/30/18 08:00 03/30/18 08:00 03/30/18 08:00 Intake and Output: 03/30/18 03/30/18 06:59 18:59 Intake Total 750 300 Output Total 2200 1900 Balance -1450 -1600 - Medications Medications: Current Medications Acetaminophen (Tylenol 325mg Tab) 650 mg PO Q6 PRN PRN Reason: Pain, Mild (1-3) Last Admin: 03/28/18 14:34 Dose: 650 mg Albuterol/Ipratropium (Duoneb 3 Mg/0.5 Mg (3 Ml) Ud) 3 ml INH RQ6 PRN PRN Reason: Cough and congestion Enoxaparin Sodium (Lovenox) 40 mg SC DAILY [facility] Last Admin: 03/29/18 09:43 Dose: 40 mg Guaifenesin (Mucinex La) 600 mg PO BID [facility] Last Admin: 03/29/18 17:20 Dose: 600 mg Azithromycin (Zithromax 500mg In Ns Addvantage) 500 mg in 250 mls @ 167 mls/hr IVPB Q24H [facility] PRN Reason: Protocol Last Admin: 03/29/18 17:50 Dose: 167 mls/hr Oxycodone/Acetaminophen (Percocet 5/325 Mg Tab) 2 tab PO Q4H PRN PRN Reason: Pain, moderate (4-7) Stop: 03/30/18 10:43 Pantoprazole Sodium (Protonix Ec Tab) 40 mg PO DAILY [facility] Last Admin: 03/29/18 09:43 Dose: 40 mg - Labs Labs: 03/26/18 12:26 03/30/18 06:20
[2018-03-30] MEDS: Pantoprazole 40 mg EC Tab PO SCH (10:57)
[2018-03-30] MEDS: guaiFENesin 600 mg ER Tab PO SCH ×2 (10:57→17:02)
[2018-03-30] MEDS: Enoxaparin 40 mg Syringe SC SCH (10:57)
--- NOTE | 2018-03-30 12:42 | CP.PCM.CON ---
Past Patient History - Past Medical History & Family History Past Medical History?: Yes - Past Social History Smoking Status: Never Smoked - PULMONARY Hx Bronchitis: Yes (periodically) Other/Comment: sinus (periodically) - MUSCULOSKELETAL/RHEUMATOLOGICAL Hx Arthritis: Yes (KNEE, BACK) - PSYCHIATRIC Hx Substance Use: No - SURGICAL HISTORY Hx Surgeries: No - ANESTHESIA Hx Anesthesia: No Meds Allergies/Adverse Reactions: Allergies Allergy/AdvReac Type Severity Reaction Status Date / Time No Known Allergies Allergy Verified 03/26/18 12:16 - Medications Medications: Current Medications Acetaminophen (Tylenol 325mg Tab) 650 mg PO Q6 PRN PRN Reason: Pain, Mild (1-3) Last Admin: 03/28/18 14:34 Dose: 650 mg Albuterol/Ipratropium (Duoneb 3 Mg/0.5 Mg (3 Ml) Ud) 3 ml INH RQ6 PRN PRN Reason: Cough and congestion Enoxaparin Sodium (Lovenox) 40 mg SC DAILY [facility] Last Admin: 03/30/18 10:57 Dose: 40 mg Guaifenesin (Mucinex La) 600 mg PO BID [facility] Last Admin: 03/30/18 10:57 Dose: 600 mg Azithromycin (Zithromax 500mg In Ns Addvantage) 500 mg in 250 mls @ 167 mls/hr IVPB Q24H KARI PRN Reason: Protocol Last Admin: 03/29/18 17:50 Dose: 167 mls/hr Pantoprazole Sodium (Protonix Ec Tab) 40 mg PO DAILY [facility] Last Admin: 03/30/18 10:57 Dose: 40 mg Results - Vital Signs Recent Vital Signs: Last Vital Signs Temp 98.2 F 03/30/18 08:00 Pulse 89 03/30/18 08:00 Resp 20 03/30/18 08:00 BP 145/80 03/30/18 08:00 Pulse Ox 95 03/30/18 08:00 - Labs Result Diagrams: 03/26/18 12:26 03/30/18 06:20 Labs: Laboratory Results - last 24 hr 03/30/18 03/30/18 06:20 07:55 Sodium 138 Potassium 4.2 Chloride 99 Carbon Dioxide 30 Anion Gap 13 BUN 10 Creatinine 0.6 L Est GFR ( Amer) > 60 Est GFR (Non-Af Amer) > 60 Random Glucose 115 H Calcium 9.1 Total Bilirubin 0.4 AST 23 ALT 29 Alkaline Phosphatase 82 Total Protein 6.4 Albumin 3.3 L Globulin 3.0 Albumin/Globulin Ratio 1.1 Cortisol AM Sample 19.1 Assessment & Plan - Assessment and Plan (Free Text) Assessment: IMP: l ADRENAL MASS FULL NOTE TBD ys
--- NOTE | 2018-03-30 15:14 | CP.PCM.PN ---
Subjective - Date & Time of Evaluation Date of Evaluation: 03/30/18 Time of Evaluation: 08:00 - Subjective Subjective: clinically same Objective - Vital Signs/Intake and Output Vital Signs (last 24 hours): Temp Pulse Resp BP Pulse Ox 98.2 F 89 20 145/80 95 03/30/18 08:00 03/30/18 08:00 03/30/18 08:00 03/30/18 08:00 03/30/18 08:00 Intake and Output: 03/30/18 03/30/18 06:59 18:59 Intake Total 750 300 Output Total 2200 1900 Balance -1450 -1600 - Medications Medications: Current Medications Acetaminophen (Tylenol 325mg Tab) 650 mg PO Q6 PRN PRN Reason: Pain, Mild (1-3) Last Admin: 03/28/18 14:34 Dose: 650 mg Albuterol/Ipratropium (Duoneb 3 Mg/0.5 Mg (3 Ml) Ud) 3 ml INH RQ6 PRN PRN Reason: Cough and congestion Enoxaparin Sodium (Lovenox) 40 mg SC DAILY [facility] Last Admin: 03/30/18 10:57 Dose: 40 mg Guaifenesin (Mucinex La) 600 mg PO BID [facility] Last Admin: 03/30/18 10:57 Dose: 600 mg Azithromycin (Zithromax 500mg In Ns Addvantage) 500 mg in 250 mls @ 167 mls/hr IVPB Q24H KARI PRN Reason: Protocol Last Admin: 03/29/18 17:50 Dose: 167 mls/hr Pantoprazole Sodium (Protonix Ec Tab) 40 mg PO DAILY [facility] Last Admin: 03/30/18 10:57 Dose: 40 mg - Labs Labs: 03/26/18 12:26 03/30/18 06:20 - Constitutional Appears: Well - Head Exam Head Exam: ATRAUMATIC, NORMAL INSPECTION, NORMOCEPHALIC - Eye Exam Eye Exam: EOMI, Normal appearance, PERRL Pupil Exam: NORMAL ACCOMODATION, PERRL - ENT Exam ENT Exam: Mucous Membranes Moist, Normal Exam - Neck Exam Neck Exam: Full ROM, Normal Inspection. absent: Lymphadenopathy - Respiratory Exam Respiratory Exam: Decreased Breath Sounds - Cardiovascular Exam Cardiovascular Exam: REGULAR RHYTHM, +S1, +S2 - GI/Abdominal Exam GI & Abdominal Exam: Soft, Diminished Bowel Sounds - Rectal Exam Rectal Exam: Deferred
[2018-03-30] MEDS: Azithromycin 500mg/250ML NS 500 MG/250 ML BAG IVPB SCH (16:30)
--- NOTE | 2018-03-30 21:45 | PN ---
DATE: 03/30/2018 LOCATION: Room 368. SUBJECTIVE: This is a 72-year-old female with generalized body weakness and constitutional symptoms and was evaluated of an incidental finding of a left adrenal adenoma and is now being followed closely for metabolic management. LABORATORY DATA: Her latest chemistry showed a BUN of 10, sodium 138, potassium 4.2, chloride 99, CO2 of 30, glucose 115, and creatinine 0.6. Her initial cortisol level was elevated with a repeat level of 19.1 today as noted. Her thyroid study showed a free T4 of 1.44 with a TSH of 1.86. ASSESSMENT AND PLAN: So, at this time, we will continue the ongoing metabolic and comprehensive hormonal workup whether we are dealing with a functioning versus nonfunctioning adrenal adenoma as noted thereof. We have sent out plasma free metanephrines and plasma aldosterone levels. We have also sent out an ongoing free cortisol collection of the urine done overnight till the present time. We will obtain serial chemistries and supplement accordingly as needed. We will await hormonal workup whether we are dealing with a functioning versus nonfunctioning adrenal adenoma, but because of the very large dimensions of the tumor, would really highly evaluate her for surgical resection using possibly a laparoscopic adrenalectomy as indicated. We will follow up with you. Barbara Vasquez MD
[2018-03-31] MEDS: guaiFENesin 600 mg ER Tab PO SCH ×2 (12:41→18:24)
[2018-03-31] MEDS: Pantoprazole 40 mg EC Tab PO SCH (12:41)
[2018-03-31] MEDS: Enoxaparin 40 mg Syringe SC SCH (12:41)
--- NOTE | 2018-03-31 14:21 | MRI ---
Date of service: 03/31/2018 PROCEDURE: MR LUMBAR SPINE WITHOUT CONTRAST HISTORY: weakness, unable to walk , r/o herniated disc COMPARISON: None available. TECHNIQUE: Multiecho multiplanar sequences were performed through the lumbar spine without the use of intravenous contrast. FINDINGS: Moderate thoracic and mild lumbar scoliotic deformity with prominent lordotic curvature appreciated. Curvature is interrupted by a grade 1 spondylolisthesis at L4-5 with L4 anterior to L5 apparently on the basis of marked facet joint degenerative arthropathy as spondylolysis is not apparent. Conus medullaris appears normal terminating at L1-2 disc interspace level. The intervertebral discs are markedly desiccated although limited fluid is seen in the anterior portion of the L4-5 intervertebral disc which may be on a degenerative basis rather than discitis as the endplates are intact above and below this disc, completely. No suspicious marrow edema is related to suggest osteomyelitis. Contrast MRI can be utilized for added characterization. Vertebral body heights are preserved. Marrow signal unremarkable. Conus medullaris unremarkable at the level of Prevertebral and paraspinal soft tissues are unremarkable. T12-L1: No disc herniation, spinal canal stenosis or neural foraminal narrowing. L1-2: No disc herniation, spinal canal stenosis or neural foraminal narrowing. Asymmetric mild degenerative neural foraminal stenosis appreciated at the left and is borderline at the right. Facet joint degenerative changes are moderate. L2-3: No disc herniation, spinal canal stenosis or neural foraminal narrowing. Moderate bilateral facet joint degenerative changes. L3-4: No disc herniation, spinal canal stenosis or neural foraminal narrowing. Advanced facet degenerative changes include small effusions with minimal disc bulging combined with facet joint hypertrophy encroaching the lateral recesses symmetrically. L4-5: No definitive disc herniation is appreciate however there is mild central canal stenosis caused by degenerative spondylolisthesis with asymmetric right greater than left lateral recess stenosis caused by asymmetry and ligamentum flavum hypertrophy and gross facet joint arthropathy. L5-S1: No disc herniation, spinal canal stenosis or neural foraminal narrowing. Moderate to severe facet joint degenerative changes are appreciated symmetrically. OTHER FINDINGS: None. IMPRESSION: 1. No definite disc herniation or severe spinal stenosis throughout the exam. 2. Grade 1 spondylolisthesis at L4-5 causes a mild central stenosis also due in part to marked facet joint degenerative changes and ligamentum flavum hypertrophy with the right lateral recess stenosis greater than the left. 3. Multilevel facet joint degenerative arthropathy and hyperlordotic curvature without vertebral body fracture identified. Lumbar sacral scoliotic deformity evident. 4. Fluid at L4-5 intervertebral disc may be degenerative and related to spondylolisthesis. No marrow edema or endplate erosion is appreciated to suggest discitis/osteomyelitis pattern. Contrast MRI can be utilized for added characterization.
--- NOTE | 2018-03-31 16:52 | CP.PCM.PN ---
Subjective - Date & Time of Evaluation Date of Evaluation: 03/31/18 Time of Evaluation: 08:15 - Subjective Subjective: clinically same Objective - Vital Signs/Intake and Output Vital Signs (last 24 hours): Temp Pulse Resp BP Pulse Ox 97.8 F 90 20 142/85 95 03/31/18 16:00 03/31/18 16:00 03/31/18 16:00 03/31/18 16:00 03/31/18 16:00 Intake and Output: 03/31/18 03/31/18 06:59 18:59 Intake Total 1400 Output Total 4150 Balance -2750 - Medications Medications: Current Medications Acetaminophen (Tylenol 325mg Tab) 650 mg PO Q6 PRN PRN Reason: Pain, Mild (1-3) Last Admin: 03/28/18 14:34 Dose: 650 mg Albuterol/Ipratropium (Duoneb 3 Mg/0.5 Mg (3 Ml) Ud) 3 ml INH RQ6 PRN PRN Reason: Cough and congestion Azithromycin (Zithromax) 500 mg PO Q24H [facility] Enoxaparin Sodium (Lovenox) 40 mg SC DAILY [facility] Last Admin: 03/31/18 12:41 Dose: 40 mg Guaifenesin (Mucinex La) 600 mg PO BID [facility] Last Admin: 03/31/18 12:41 Dose: 600 mg Pantoprazole Sodium (Protonix Ec Tab) 40 mg PO DAILY [facility] Last Admin: 03/31/18 12:41 Dose: 40 mg - Labs Labs: 03/26/18 12:26 03/30/18 06:20 - Constitutional Appears: Well - Head Exam Head Exam: ATRAUMATIC, NORMAL INSPECTION, NORMOCEPHALIC - Eye Exam Eye Exam: EOMI, Normal appearance, PERRL Pupil Exam: NORMAL ACCOMODATION, PERRL - ENT Exam ENT Exam: Mucous Membranes Moist, Normal Exam - Neck Exam Neck Exam: Full ROM, Normal Inspection. absent: Lymphadenopathy - Respiratory Exam Respiratory Exam: Decreased Breath Sounds - Cardiovascular Exam Cardiovascular Exam: REGULAR RHYTHM, +S1, +S2 - GI/Abdominal Exam GI & Abdominal Exam: Soft, Diminished Bowel Sounds - Rectal Exam Rectal Exam: Deferred
--- NOTE | 2018-03-31 16:56 | CP.PCM.PN ---
Subjective - Date & Time of Evaluation Date of Evaluation: 03/31/18 Time of Evaluation: 16:53 - Subjective Subjective: Surgery PT seen and examined. No acute events. Pt wants to avoid surgery if possible. Denies fever, vision changes, MOR[place]. Seen by urologist. Objective - Vital Signs/Intake and Output Vital Signs (last 24 hours): Temp Pulse Resp BP Pulse Ox 97.8 F 90 20 142/85 95 03/31/18 16:00 03/31/18 16:00 03/31/18 16:00 03/31/18 16:00 03/31/18 16:00 Intake and Output: 03/31/18 03/31/18 06:59 18:59 Intake Total 1400 Output Total 4150 Balance -2750 - Medications Medications: Current Medications Acetaminophen (Tylenol 325mg Tab) 650 mg PO Q6 PRN PRN Reason: Pain, Mild (1-3) Last Admin: 03/28/18 14:34 Dose: 650 mg Albuterol/Ipratropium (Duoneb 3 Mg/0.5 Mg (3 Ml) Ud) 3 ml INH RQ6 PRN PRN Reason: Cough and congestion Azithromycin (Zithromax) 500 mg PO Q24H [facility] Enoxaparin Sodium (Lovenox) 40 mg SC DAILY [facility] Last Admin: 03/31/18 12:41 Dose: 40 mg Guaifenesin (Mucinex La) 600 mg PO BID [facility] Last Admin: 03/31/18 12:41 Dose: 600 mg Pantoprazole Sodium (Protonix Ec Tab) 40 mg PO DAILY [facility] Last Admin: 03/31/18 12:41 Dose: 40 mg - Labs Labs: 03/26/18 12:26 03/30/18 06:20 - Constitutional Appears: No Acute Distress - Head Exam Head Exam: ATRAUMATIC, NORMAL INSPECTION, NORMOCEPHALIC - Eye Exam Eye Exam: EOMI, Normal appearance, PERRL Pupil Exam: NORMAL ACCOMODATION, PERRL - ENT Exam ENT Exam: Mucous Membranes Moist, Normal Exam - Neck Exam Neck Exam: Full ROM, Normal Inspection. absent: Lymphadenopathy - Respiratory Exam Respiratory Exam: NORMAL BREATHING PATTERN - Cardiovascular Exam Cardiovascular Exam: REGULAR RHYTHM, +S1, +S2. absent: Murmur - GI/Abdominal Exam GI & Abdominal Exam: Soft, Normal Bowel Sounds. absent: Distended, Tenderness - Extremities Exam Extremities Exam: Full ROM, Normal Capillary Refill, Normal Inspection. absent : Joint Swelling, Pedal Edema - Back Exam Back Exam: NORMAL INSPECTION - Neurological Exam Neurological Exam: Alert, Awake, CN II-XII Intact, Normal Gait, Oriented x3 - Psychiatric Exam Psychiatric exam: Normal Affect, Normal Mood - Skin Skin Exam: Dry, Intact, Normal Color, Warm Assessment and Plan - Assessment and Plan (Free Text) Assessment: 72F with adrenal mass- possible functional adenoma Plan: -Awaiting further endocrine test results -elevated cortisol -Possibility of Surgical excision of mass not excluded at this time -f/u urology about possible surgical intervention -Endocrinology recs appreciated -D/w Dr. Rodriguez
--- NOTE | 2018-03-31 18:39 | PN ---
DATE: 03/31/2018 ENDO FOLLOWUP NOTE LOCATION: In room 365. SUBJECTIVE: This is a 72-year-old female being followed closely for metabolic workup of an incidental adrenal adenoma in the left adrenal gland and is undergoing metabolic and endocrine workup at this time. LABORATORY DATA: Her repeat chemistries today showed a BUN of 10, sodium 138, potassium 4.2, chloride 99, CO2 of 30, glucose 115, and creatinine 0.6. Her repeat cortisol level is 19.1 and the 24-hour urinary cortisol is pending at this time. The thyroid study showed a TSH of 1.86 and a free T4 of 1.44. ASSESSMENT AND PLAN: So at this time, we will continue the neurological workup as being undertaken and also from the metabolic viewpoint, we will be awaiting the reports of the endocrine workup, which were actually sent out or for further completion. She can be discharged from the endocrine viewpoint as we can follow the reports from the outpatient since this the hormonal levels will take a week to ten days for completion. Barbara Vasquez MD
[2018-04-01] MEDS: Enoxaparin 40 mg Syringe SC SCH (11:35)
[2018-04-01] MEDS: Pantoprazole 40 mg EC Tab PO SCH (11:35)
[2018-04-01] MEDS: guaiFENesin 600 mg ER Tab PO SCH ×2 (11:35→17:12)
[2018-04-01 13:55] LABS: BASO # 0.1 K/uL (0.0-0.2); BASO % 0.8 % (0.0-2.0); EOS # 0.2 K/uL (0.0-0.7); EOS % 1.9 % (0.0-4.0); HEMOGLOBIN 12.8 g/dL (11.0-16.0); LYMPH # 1.3 K/uL (1.0-4.3); MEAN CORPUSCULAR HEMOGLOBIN 28.9 pg (27.0-31.0); MEAN CORPUSCULAR HGB CONC 34.4 g/dL (33.0-37.0); MEAN PLATELET VOLUME 7.9 fL (7.2-11.7); MONO # 0.7 K/uL (0.0-0.8); MONO % 8.4 % (0.0-10.0); NEUT # 5.7 K/uL (1.8-7.0); NEUT % 71.9 % (50.0-75.0); RBC 4.43 Mil/uL (3.80-5.20); WHITE BLOOD COUNT 7.9 K/uL (4.8-10.8)
[2018-04-01 14:11] LABS: BLOOD UREA NITROGEN 13 mg/dL (7-17); CALCIUM 8.9 mg/dl (8.6-10.4); GFR NON-AFRICAN AMERICAN > 60
[2018-04-01 16:26] VITALS: BP 123/69; PULSE 93; TEMP 97.7
--- NOTE | 2018-04-01 17:00 | CP.PCM.PN ---
Subjective - Date & Time of Evaluation Date of Evaluation: 04/01/18 Time of Evaluation: 11:00 - Subjective Subjective: Awake, alert, denies any pain, no acute distress. Objective - Vital Signs/Intake and Output Vital Signs (last 24 hours): Temp Pulse Resp BP Pulse Ox 97.7 F 93 H 20 123/69 95 04/01/18 16:00 04/01/18 16:00 04/01/18 16:00 04/01/18 16:00 04/01/18 16:00 Intake and Output: 04/01/18 04/01/18 06:59 18:59 Intake Total 200 Output Total 3950 Balance -3750 - Medications Medications: Current Medications Acetaminophen (Tylenol 325mg Tab) 650 mg PO Q6 PRN PRN Reason: Pain, Mild (1-3) Last Admin: 03/28/18 14:34 Dose: 650 mg Albuterol/Ipratropium (Duoneb 3 Mg/0.5 Mg (3 Ml) Ud) 3 ml INH RQ6 PRN PRN Reason: Cough and congestion Azithromycin (Zithromax) 500 mg PO Q24H [facility] Last Admin: 03/31/18 18:33 Dose: 500 mg Enoxaparin Sodium (Lovenox) 40 mg SC DAILY [facility] Last Admin: 04/01/18 11:35 Dose: 40 mg Guaifenesin (Mucinex La) 600 mg PO BID [facility] Last Admin: 04/01/18 11:35 Dose: 600 mg Pantoprazole Sodium (Protonix Ec Tab) 40 mg PO DAILY [facility] Last Admin: 04/01/18 11:35 Dose: 40 mg - Labs Labs: 04/01/18 13:48 04/01/18 13:48 Assessment and Plan - Assessment and Plan (Free Text) Assessment: 72 year old female admitted with generalized weakness, unable to ambulate, with incidental finding of adrenal mass, seen and examined. Alert and orientedx3, denies acute pain or distress. Discussed with DR Haleigh Mcguire, no immediate plans for surgery as per Anshu and AFTAB Peralta. Patient agreed to go to [facility] for physical therapy. Cleared by the neuro. To be followed by DR Vasquez and DR Peralta for further work up.
--- NOTE | 2018-04-01 20:17 | PN ---
DATE: 04/01/2018 ENDO FOLLOWUP NOTE LOCATION: In room 368. SUBJECTIVE: This is a 72-year-old female with an incidental adrenal adenoma seen by CAT scan and currently undergoing metabolic workup at this time and is being followed closely for metabolic management. Her repeat chemistries today shows a BUN of 13, sodium 131, potassium 4.2, chloride 94, CO2 26, glucose 183, and creatinine 0.6. Her plasma catecholamine levels were slightly elevated with a value of 594 with normal troponin and norepinephrine values as noted. Her ACTH level was also elevated at 58 and urinary free cortisol collection is pending at this time. Her renin levels are normal at 0.34 with aldosterone value of less than 1. ASSESSMENT AND PLAN: The plasma free metanephrines were actually reported as normal; so this will exclude the possibility of an underlying pheochromocytoma at this point in time. Moreover, this will also exclude any aldosterone -secreting adenoma. We are left with the possibility of a [place]'s adenoma with elevated cortisol and ACTH values, but we are awaiting the 24-hour urinary free cortisol level at this time. A laparoscopic adrenalectomy would be a recommendation after the full completion of the hormonal profile levels as noted. An adrenal biopsy is always a possibility, but there is always the risk of hemorrhage as noted thereof. We would obtain serial chemistries and supplement accordingly as needed. We will follow. Barbara Vasquez MD [facility] # [id number]
--- NOTE | 2018-04-02 09:44 | CON ---
DATE: 03/30/2018 UROLOGY CONSULTATION REQUESTED BY: Mariah Mcguire MD Urology consultation is filled by Dr. Alexandra Peralta. REASON FOR CONSULTATION: Left adrenal mass. HISTORY OF PRESENT ILLNESS: The patient is a 72-year-old female who was admitted to the hospital. The patient presented to the emergency room with pain of the hips and edema of the lower extremities. The patient reports that she slid off her chair. She landed on her abdomen. She reports no forceful blunt trauma to the head or to the extremities. The patient slid following an attempt to retrieve or repair a lamp knocked over by her cat. The patient is in otherwise fair health. The patient reports no history of hypertension or diabetes. The patient reports pain of the legs. No back pain. The patient reports no nausea or vomiting. No recent fever or rigors. The patient reports good urinary stream, good control. Nocturia x1. No hematuria, no dysuria. No history of urinary tract infection. No history of urolithiasis. The patient had an abdominal CT scan, which revealed a 5 cm left adrenal mass. The patient is currently admitted for evaluation and treatment. The patient also reports that she has had back pain radiating to the lower extremities. The patient does not smoke. The patient is retired. PHYSICAL EXAMINATION: GENERAL: The patient is a well-developed, well-nourished overweight female, appearing her stated age. ABDOMEN: Soft, nontender, nondistended. No mass or organomegaly. BACK: No CVA tenderness. LABORATORY DATA: Reviewed as well. BUN 12, creatinine 0.6. Glucose is 138. Hematocrit 34, white blood count 7500. BUN 10, creatinine 0.5. On admission, glucose 117. IMPRESSION: A 72-year-old female admitted for evaluation following a fall. The patient was found to have an adrenal mass. Further evaluation of the adrenal mass is in order. The patient requires repeat CT scan or MRI with and without contrast. A triphasic study with adrenal protocol is recommended. Endocrinologic evaluation is in progress to determine the endocrinologic activity if any of the adrenal mass. This may be an endocrinologic active tumor producing either steroids or catecholamines. Findings discussed with the patient as well as with the surgical staff. Further therapy to follow according to the results above, as well as the patient's wishes. We discussed the findings with the patient as well. Thank you for recommending the patient for Urology consultation. Alexandra MD Fabian cc: MD Barbara Bray MD Benetta Miller, MD
[2018-04-02 18:08] VITALS: O2SAT 95
== END 2018-04-01 17:16 | DRG 644 ==
LOC: C.ER 11:21 → C.9E 14:59 → C.3T 15:59
PROVIDERS: ADMIT Internal Medicine Nephrology; ATTEND Internal Medicine Nephrology
DX: D35.02 Benign neoplasm of left adrenal gland (principal); E87.6 Hypokalemia; M25.552 Pain in left hip; M25.551 Pain in right hip; R26.81 Unsteadiness on feet; R53.1 Weakness; M85.80 Other specified disorders of bone density and structure, unspecified site; W19.XXXA Unspecified fall, initial encounter; E66.01 Morbid (severe) obesity due to excess calories; Z68.41 Body mass index [BMI] 40.0-44.9, adult; I10 Essential (primary) hypertension; G62.9 Polyneuropathy, unspecified; M51.9 Unspecified thoracic, thoracolumbar and lumbosacral intervertebral disc disorder; M54.17 Radiculopathy, lumbosacral region; N28.89 Other specified disorders of kidney and ureter